=== PATIENT | male | born 2000 | race Caucasian/White ===

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

== ENCOUNTER → 2022-05-18 | Outpatient (REF) | LOC: LAB 13:44 | DX: Z00.00 Encounter for general adult medical examination without abnormal findings (principal); J45.20 Mild intermittent asthma, uncomplicated; J30.89 Other allergic rhinitis; H61.23 Impacted cerumen, bilateral; M35.9 Systemic involvement of connective tissue, unspecified ==

== ENCOUNTER → 2022-05-25 | Outpatient (CLI) | payer BC | LOC: RAD 07:47 | DX: R74.01 Elevation of levels of liver transaminase levels (principal) ==

== ENCOUNTER → 2022-07-21 | Outpatient (CLI) | payer BC | LOC: LAB 13:01 | DX: R30.9 Painful micturition, unspecified (principal) ==